=== PATIENT | female | born 1975 | race Caucasian/White ===

== ENCOUNTER 2018-01-29 10:52 | Emergency (ER) | payer SELFPAY ==
[2018-01-29 11:25] VITALS: BP 114/78
[2018-01-29] MEDS ORDERED: PREDNISONE 20 MG TABLET PO ONE (11:58)
[2018-01-29] MEDS ORDERED: FAMOTIDINE 20 MG TABLET PO ONE (11:58)
--- NOTE | 2018-01-29 12:01 | ER Document Report ---
ED Allergic Reaction - General Chief Complaint: Allergy Symptoms Stated Complaint: FACIAL SWELLING Time Seen by Provider: 01/29/18 11:35 Mode of Arrival: Ambulatory Information source: Patient Notes: 42-year-old female presented to ED for complaint of facial swelling and itching and sneezing itchy mouth and scratchy eyes that started yesterday after she had breakfast and her nails done. She states she has not eaten or drinking or done anything that is different. She states she took some Benadryl and Zyrtec with no relief. She states she does have a history of allergies anxiety depression bronchitis and sinus infections. She denies any fever since the symptoms started. He is alert and oriented respirations are regular and unlabored speaking in full sentences and walks with a even steady gait. - HPI Onset: Yesterday Onset/Duration: Persistent Quality of pain: No pain Severity: None Pain Level: Denies Identified cause: No Skin rash / itching: Facial Swelling: Face Similar symptoms previously: Yes Recently seen / treated by doctor: No - Related Data Allergies/Adverse Reactions: erythromycin base [From E-Mycin] Allergy (Verified 01/29/18 10:59) tramadol Allergy (Verified 01/29/18 10:59) Past Medical History - General Information source: Patient - Social History Smoking Status: Current Every Day Smoker Cigarette use (# per day): Yes - One half pack per day Chew tobacco use (# tins/day): No Smoking Education Provided: Yes - 4 minutes Frequency of alcohol use: None Drug Abuse: None Lives with: Family Family History: None, Reviewed & Not Pertinent Patient has suicidal ideation: No Patient has homicidal ideation: No - Past Medical History Cardiac Medical History: Reports: None Pulmonary Medical History: Reports: Hx Bronchitis EENT Medical History: Reports: None Neurological Medical History: Reports: None Endocrine Medical History: Reports: None Renal/ Medical History: Reports: None Malignancy Medical History: Reports: None GI Medical History: Reports: None Musculoskeletal Medical History: Reports None Skin Medical History: Reports None Psychiatric Medical History: Reports: Hx Anxiety, Hx Depression Traumatic Medical History: Reports: None Infectious Medical History: Reports: None Past Surgical History: Reports: Hx Cholecystectomy, Hx Tubal Ligation - Immunizations Hx Diphtheria, Pertussis, Tetanus Vaccination: Yes Review of Systems - Review of Systems Constitutional: No symptoms reported EENT: Other - Patient itching and swelling in the face. denies: Difficulty swallowing Cardiovascular: No symptoms reported Respiratory: No symptoms reported Gastrointestinal: No symptoms reported Genitourinary: No symptoms reported Female Genitourinary: No symptoms reported Musculoskeletal: No symptoms reported Skin: No symptoms reported Hematologic/Lymphatic: No symptoms reported Neurological/Psychological: No symptoms reported -: Yes All other systems reviewed and negative Physical Exam - Vital signs Vitals: Temp Pulse Resp BP Pulse Ox 98.7 F 72 16 114/78 97 01/29/18 11:24 01/29/18 11:24 01/29/18 11:24 01/29/18 11:24 01/29/18 11:24 Course - Re-evaluation Re-evalutation: 01/29/18 20:36 Patient was treated with prednisone and Pepcid in the emergency room and instructed to use Benadryl at home. Patient verbalized understanding and agreement with treatment plan. She also agreed to follow-up with her primary doctor. - Vital Signs Vital signs: Temp Pulse Resp BP Pulse Ox 98.7 F 72 16 114/78 97 01/29/18 11:24 01/29/18 11:24 01/29/18 11:24 01/29/18 11:24 01/29/18 11:24 Discharge - Discharge Clinical Impression: Allergic rhinitis Qualifiers: Allergic rhinitis trigger: unspecified Allergic rhinitis seasonality: unspecified Qualified Code(s): J30.9 - Allergic rhinitis, unspecified URI (upper respiratory infection) Qualifiers: URI type: unspecified URI Qualified Code(s): J06.9 - Acute upper respiratory infection, unspecified Condition: Stable Disposition: HOME, SELF-CARE Instructions: Family Physicians / Practices, Pediatricians Additional Instructions: ACUTE ALLERGIC REACTION: Your symptoms are due to an allergic reaction. Allergy can cause hives, swelling of the hands, feet, and face, hoarseness, and difficulty swallowing or breathing. It may be due to exposure to medication, animal dander, foods, infection, or insect bites. Medication is a common cause, even when prior use of this same medication caused no problems. Acute treatment may include adrenalin and antihistamines. Usually, the specific allergic agent can't be identified unless repeated episodes occur. Home treatment includes the following: (1) Stop any suspicious medications. This will be discussed with you. (2) Oral antihistamines for the next four to five days. Example, diphenhydramine (Benadryl) every four hours. (3) You may also use cimetidine (Tagamet), ranitidine (Zantac), or famotidine ( Pepcid) every four hours if diphenhydramine is not controlling itching and hives. (4) Avoid aspirin until the hives completely disappear. (5) Avoid hot baths or showers until the hives are completely gone. Call the doctor if faintness, difficulty swallowing, tightness in the chest , or wheezing occurs. STEROID MEDICATION: You have been given a medicine of the cortisone/steroid class. This medication is used to control inflammation or allergy. It is usually only given for a short period of time, until the acute process subsides. There are usually no side effects from short-term use of cortisone-like medications. Some persons feel an increased sense of well-being and are not sleepy at bedtime. Long-term use of cortisone medications is best avoided, unless required for a severe condition. If your condition does not remit, or relapses after the course of corticosteroid medication, you should consult your physician. ACID-SUPPRESSING MEDICATION: You have a prescription for medicine which reduces the stomach's secretion of acid. Examples include Zantac, Tagament, and Pepcid. These drugs are often used to allow healing of ulcers or esophagitis. They may be needed to prevent recurrence of ulcers in some patients, or to prevent damage from acid reflux in the esophagus. Take all medication as prescribed, even after the pain is gone. Regular antacids may be added as needed if you have symptoms while taking this medicine. These medications sometimes are prescribed for allergic reactions because they have anti-histaminic effects and relieve the rash and itching of the reaction. There are usually no side effects from this medication. But, in rare cases and particularly in the elderly, serious problems can occur. Contact your doctor if there is fever, rash, hallucinations, confusion, or unusual bruising. Contact your doctor at once if you develop lightheadedness, black or bloody stool, or bloody vomitus. ANTIHISTAMINES: An antihistamine has been given and/or prescribed to control your symptoms. Antihistamines are used for many reasons, including itching, watering eyes, runny nose, allergic swelling, hives, and insect stings. Antihistamines may cause drowsiness, especially with the first dose. Do not operate machinery or drive while under the effects of the medication. Other common side effects include dry mouth and eyes. In older persons, antihistamines can occasionally cause urinary retention, constipation, and trouble focusing the eyes. Do not combine the medication with alcohol, or with any other medication without talking to your doctor. UPPER RESPIRATORY ILLNESS: You have a viral infection of the respiratory passages -- a "cold." This common infection causes nasal congestion, drainage, and often sore throat and cough. It is highly contagious. The disease usually lasts about 10 to 14 days. There is no "cure" for the viral infection -- it must run its course. If there is a complication, such as bacterial infection in the nose, sinuses, middle ear, or bronchial tubes, antibiotics may be required. The antibiotics won't affect the virus. Drink plenty of fluids. A humidifier may help. An expectorant medication or decongestant may make you more comfortable. Use acetaminophen or ibuprofen for fever or aches. See the doctor if fever persists over two days, if there is any significant worsening of your symptoms, or if you simply fail to improve as expected. DECONGESTANT MEDICATION: A decongestant medicine has been suggested. Often this medicine is combined in the same tablet with an antihistamine or expectorant. This type of medicine is helpful in treating a bad cold or sinus condition, as well as in treatment of the nasal congestion of hay fever. It is not of much benefit for lung infections. Decongestant medicines are related to stimulants. They can cause an increase in blood pressure and heart rate. Persons with heart disease and high blood pressure should not take decongestants without discussing this with the physician. If you develop palpitations, chest pain, headache, or tremors, stop the medicine and consult your physician. COUGH-SUPPRESSANT & EXPECTORANT MEDICATION: You are to use a cough medication as needed for relief of symptoms. This medicine is a combination of an expectorant (to make the mucous thinner and more easily "coughed up") and a cough suppressant (to reduce the frequency of coughing). The cough-suppressant medicine is related to narcotics. You may experience mild nausea and sleepiness. Some patients who are very sensitive to narcotics may have stomach pain from this medicine. Taking the medicine with food reduces these side effects. Do not drive or work with machinery until you know how this medicine affects you. The expectorant should have no side effects. Iodine-containing expectorants (such as organidin) should not be taken by persons with active thyroid disease unless approved by your doctor. Call the doctor if you develop shortness of breath, hives, rash, itching, lightheadedness, or severe nausea and vomiting. USE OF ACETAMINOPHEN (Tylenol): Acetaminophen may be taken for pain relief or fever control. It's much safer than aspirin, offering a wider range of "safe" dosages. It is safe during . Some brand names are Tylenol, Panadol, Datril, Anacin 3, Tempra, and Liquiprin. Acetaminophen can be repeated every four hours. The following are maximum recommended dosages: >89 pounds or adults 650 mg to 900 mg Acetaminophen can be repeated every four hours. Maximum dose not to exceed 4000 mg a day. SMOKING: If you smoke, you should stop smoking. The tar and chemicals in cigarette smoke are harmful. Smoking has been shown to cause: emphysema chronic bronchitis lung cancer mouth and throat cancer stomach and pancreas cancer premature aging defects In addition, smoking increases ear and lung infections in children of smokers. FOLLOW-UP CARE: If you have been referred to a physician for follow-up care, call the physician s office for an appointment as you were instructed or within the next two days. If you experience worsening or a significant change in your symptoms, notify the physician immediately or return to the Emergency Department at any time for re-evaluation. Prescriptions: Famotidine [Pepcid 20 mg Tablet] 20 mg PO BID #12 tablet Prednisone [Deltasone 20 mg Tablet] 2 tab PO DAILY 3 Days tablet Forms: Smoking Cessation Education Referrals: HUMERA CHANDRA MD [NO LOCAL MD] - Follow up as needed
== END 2018-01-29 12:22 | disposition home or self-care (01) ==
LOC: ER 10:52
DX: J06.9 Acute upper respiratory infection, unspecified (principal); J30.9 Allergic rhinitis, unspecified; F17.210 Nicotine dependence, cigarettes, uncomplicated; Z98.51 Tubal ligation status; Z90.49 Acquired absence of other specified parts of digestive tract
CPT/HCPCS: 99406; 99283; J7512

== ENCOUNTER 2018-09-14 11:32 | Emergency (ER) | payer SELFPAY ==
[2018-09-14 11:39] VITALS: BP 137/86
--- NOTE | 2018-09-14 12:13 | ER Document Report ---
ED General - General Chief Complaint: Urinary Frequency Stated Complaint: LOWER BACK PAIN Time Seen by Provider: 09/14/18 11:52 Primary Care Provider: SKYE ACEVES MD [COMMUNITY BASED STAFF] - Follow up in 3-5 days (or your primary care. ) Notes: Patient is a 42-year-old female that presents to the emergency department for chief complaint of low back pain, dysuria and urinary frequency. Patient reports that she started having the symptoms a few days ago, and they are not going away so she decided come to the emergency department. She currently rates her pain as a 2 out of 10 describes it as uncomfortable. She denies having any fevers, chills, night sweats, flank pain, nausea, vomiting, diarrhea, chest pain or shortness of breath. No other complaints at this time. Past Medical History: Denies chronic medical conditions Past Surgical History: Cholecystectomy, tubal ligation Social History: Admits to smoking cigarettes, denies alcohol or drug use Family History: Reviewed and noncontributory for presenting illness Allergies: Reviewed, see documented allergy list. REVIEW OF SYSTEMS: Other than noted above, the 12 point review of systems was reviewed with the patient and were negative, all pertinent findings are included in the HPI. PHYSICAL EXAMINATION: Vital signs reviewed, nursing noted reviewed. GENERAL: Well-appearing, well-nourished and in no acute distress. HEAD: Atraumatic, normocephalic. EYES: Eyes appear normal, extraocular movements intact, sclera anicteric, conjunctiva are normal. ENT: nares patent, oropharynx clear without exudates. Moist mucous membranes. NECK: Normal range of motion, supple without lymphadenopathy LUNGS: Breath sounds clear to auscultation bilaterally and equal. No wheezes rales or rhonchi. HEART: Regular rate and rhythm without murmurs ABDOMEN: Soft, obese, nontender, normoactive bowel sounds. No rebound, guarding, or rigidity. No masses appreciated. EXTREMITIES: Nontender, good range of motion, no pitting or edema. NEUROLOGICAL: No focal neurological deficits. Moves all extremities spontaneously Motor and sensory grossly intact on exam. PSYCH: Normal mood, normal affect. SKIN: Warm, Dry, normal turgor, no rashes or lesions noted on exposed skin TRAVEL OUTSIDE OF THE [place] IN LAST 30 DAYS: No - Related Data Allergies/Adverse Reactions: erythromycin base [From [employer] Allergy (Verified 09/14/18 11:34) tramadol Allergy (Verified 09/14/18 11:34) Past Medical History - Social History Smoking Status: Current Every Day Smoker Chew tobacco use (# tins/day): No Frequency of alcohol use: Social Drug Abuse: None Family History: None, Reviewed & Not Pertinent Patient has suicidal ideation: No Patient has homicidal ideation: No Pulmonary Medical History: Reports: Hx Bronchitis Renal/ Medical History: Denies: Hx Peritoneal Dialysis Psychiatric Medical History: Reports: Hx Anxiety, Hx Depression Past Surgical History: Reports: Hx Cholecystectomy, Hx Tubal Ligation - Immunizations Hx Diphtheria, Pertussis, Tetanus Vaccination: Yes Physical Exam - Vital signs Vitals: Temp Pulse Resp BP Pulse Ox 98.6 F 90 18 137/86 H 98 09/14/18 11:38 09/14/18 11:38 09/14/18 11:38 09/14/18 11:38 09/14/18 11:38 Course - Re-evaluation Re-evalutation: Patient seen and examined, vital signs reviewed, patient appears well on exam, her complaints are very consistent with urinary tract infection, will send her urine for urinalysis and culture, patient will be written a prescription for Keflex twice daily for 5 days. Her UA was reviewed, had positive leukocyte esterase, bacteria, and white cells concerning for urinary tract infection, again will send for culture. Patient was also given Pyridium given that she had dysuria associated with this. She is advised to follow-up with a primary care physician. Laboratory 09/14/18 12:18 Urine Color STRAW Urine Appearance SLIGHTLY-CLOUDY Urine pH 6.0 Ur Specific [place] 1.005 Urine Protein NEGATIVE Urine Glucose (UA) NEGATIVE Urine Ketones NEGATIVE Urine Blood MODERATE H Urine Nitrite NEGATIVE Urine Bilirubin NEGATIVE Urine Urobilinogen NEGATIVE Ur Leukocyte Esterase SMALL H Urine WBC (Auto) 39 Urine RBC (Auto) 3 Urine Bacteria (Auto) 1+ Squamous Epi Cells Auto 3 Urine Mucus (Auto) RARE Urine Ascorbic Acid NEGATIVE - Vital Signs Vital signs: Temp Pulse Resp BP Pulse Ox 98.6 F 90 18 137/86 H 98 09/14/18 11:38 09/14/18 11:38 09/14/18 11:38 09/14/18 11:38 09/14/18 11:38 - Laboratory Laboratory results interpreted by me: 09/14/18 12:18 Urine Blood MODERATE H Ur Leukocyte Esterase SMALL H Discharge - Discharge Clinical Impression: UTI (urinary tract infection) Qualifiers: Urinary tract infection type: site unspecified Hematuria presence: with hematuria Qualified Code(s): N39.0 - Urinary tract infection, site not specified; R31.9 - Hematuria, unspecified Condition: Stable Disposition: HOME, SELF-CARE Instructions: Urinary Anesthetic Agent ([facility]), Urinary Tract Infection ([facility]) Additional Instructions: Please take all medications as prescribed, and complete the entire course of antibiotics, if you have any worsening symptoms, develop fevers or chills, do not hesitate to return to the emergency department sooner. Prescriptions: Cephalexin Monohydrate [Keflex 500 mg Capsule] 500 mg PO BID 5 Days #10 capsule Phenazopyridine HCl [Pyridium 200 mg Tablet] 200 mg PO TID #15 tablet Referrals: SKYE ACEVES MD [COMMUNITY BASED STAFF] - Follow up in 3-5 days (or your primary care. )
[2018-09-14 13:05] LABS: APPEARANCE,URINE SLIGHTLY-CLOUDY; BILIRUBIN,URINE NEGATIVE (NEGATIVE); COLOR,URINE STRAW; GLUCOSE, URINE NEGATIVE (NEGATIVE); KETONES,URINE NEGATIVE (NEGATIVE); LEUKOCYTE ESTERASE,URINE SMALL (NEGATIVE); NITRITE,URINE NEGATIVE (NEGATIVE); PROTEIN,URINE NEGATIVE (NEGATIVE); URINE SPECIFIC GRAVITY 1.005; UROBILINOGEN,URINE NEGATIVE mg/dL (<2.0)
== END 2018-09-14 12:24 | disposition home or self-care (01) ==
LOC: ER 11:32
DX: N39.0 Urinary tract infection, site not specified (principal); R31.9 Hematuria, unspecified; M54.5 Low back pain; R30.0 Dysuria; R35.0 Frequency of micturition; F17.210 Nicotine dependence, cigarettes, uncomplicated; Z88.1 Allergy status to other antibiotic agents; Z88.5 Allergy status to narcotic agent
CPT/HCPCS: 81001; 87086; 87088; 87186; 99283

== ENCOUNTER 2019-04-19 13:00 | Emergency (ER) | payer SELFPAY ==
[2019-04-19 13:04] VITALS: BP 128/88
[2019-04-19] MEDS ORDERED: IPRATROPIUM/ALBUTEROL 0.5-2.5 MG/3 ML AMPUL NEB ONE (13:52)
[2019-04-19] MEDS ORDERED: PSEUDOEPHEDRINE HCL 30 MG TABLET PO ONE (13:52)
[2019-04-19] MEDS ORDERED: IBUPROFEN 800 MG TABLET PO ONE (13:52)
[2019-04-19] MEDS ORDERED: PREDNISONE 20 MG TABLET PO ONE (13:52)
--- NOTE | 2019-04-19 13:53 | ER Document Report ---
HPI - HPI Patient complains to provider of: sore throat, congestion Time Seen by Provider: 04/19/19 13:42 Onset: Other - 5 days Onset/Duration: Persistent Quality of pain: Achy Pain Level: 3 Context: Patient presents complaining of sinus congestion sore throat cough for the past 5 days. Patient denies any fever. Patient does report recent sick contacts with similar symptoms. Associated Symptoms: Nonproductive cough, Rhinnorhea, Sinus pain/drainage, Sore throat. denies: Chills, Fever, Nausea, Vomiting Exacerbated by: Denies Relieved by: Denies Similar symptoms previously: No Recently seen / treated by doctor: No - ROS ROS below otherwise negative: Yes Systems Reviewed and Negative: Yes All other systems reviewed and negative - CONSTITUTIONAL Constitutional: DENIES: Fever, Chills - EENT EENT: REPORTS: Sore Throat, Nasal Drainage-Clear, Congestion - NEURO Neurology: DENIES: Headache - CARDIOVASCULAR Cardiovascular: DENIES: Chest pain - RESPIRATORY Respiratory: REPORTS: Coughing. DENIES: Trouble Breathing - GASTROINTESTINAL Gastrointestinal: DENIES: Nausea, Patient vomiting, Diarrhea - REPRODUCTIVE Reproductive: DENIES: : - DERM Skin Color: Normal Skin Problems: None Past Medical History - General Information source: Patient - Social History Smoking Status: Current Every Day Smoker Smoking Education Provided: Yes Frequency of alcohol use: None Drug Abuse: None Occupation: none Family History: None, Reviewed & Not Pertinent Pulmonary Medical History: Reports: Hx Asthma, Hx Bronchitis Renal/ Medical History: Denies: Hx Peritoneal Dialysis Psychiatric Medical History: Reports: Hx Anxiety, Hx Depression Past Surgical History: Reports: Hx Cholecystectomy, Hx Tubal Ligation - Immunizations Hx Diphtheria, Pertussis, Tetanus Vaccination: Yes Vertical Provider Document - CONSTITUTIONAL Agree With Documented VS: Yes Exam Limitations: No Limitations General Appearance: WD/WN, No Apparent Distress - INFECTION CONTROL TRAVEL OUTSIDE OF THE [place] IN LAST 30 DAYS: No - HEENT HEENT: Atraumatic, Normocephalic, Pharyngeal Tenderness, Pharyngeal Erythema. negative: Pharyngeal Exudate, Tympanic Membrane Red, Tympanic Membrane Bulging Notes: Clear rhinorrhea, swollen nasal mucosa. No facial swelling - NECK Neck: Normal Inspection, Supple. negative: Lymphadenopathy-Left, Lymphadenopathy-Right - RESPIRATORY Respiratory: No Respiratory Distress, Chest Non-Tender, Wheezing - CARDIOVASCULAR Cardiovascular: Regular Rate, Regular Rhythm, No Murmur - BACK Back: Normal Inspection - MUSCULOSKELETAL/EXTREMETIES Musculoskeletal/Extremeties: MAEW - NEURO Level of Consciousness: Awake, Alert, Appropriate Motor/Sensory: No Motor Deficit - DERM Integumentary: Warm, Dry, No Rash Course - Re-evaluation Re-evalutation: 04/19/19 14:24 Respirations unlabored, patient with decreased wheezing and increased air movement bilaterally. Nontoxic appearance. No concern for peritonsillar abscess or sinusitis at this time. - Vital Signs Vital signs: Temp Pulse Resp BP Pulse Ox 98.5 F 86 18 128/88 H 96 04/19/19 13:03 04/19/19 13:03 04/19/19 13:03 04/19/19 13:03 04/19/19 13:03 - Laboratory Laboratory results interpreted by me: 04/19/19 14:24 Labs- Entire Visit 04/19/19 13:50 Group A Strep Rapid NEGATIVE Discharge - Discharge Clinical Impression: Wheezing, Sinus congestion, Sore throat Upper respiratory infection Qualifiers: URI type: unspecified URI Qualified Code(s): J06.9 - Acute upper respiratory infection, unspecified Condition: Stable Disposition: HOME, SELF-CARE Instructions: Acetaminophen, Inhaled Bronchodilators ([facility]), Sore Throat ([facility]), Steroid Medication, Upper Respiratory Illness ([facility]) Additional Instructions: Return immediately for any new or worsening symptoms Followup with your primary care provider, call tomorrow to make a followup appointment Throat culture is pending, we will call if you need any different treatment Prescriptions: Prednisone [Deltasone 20 mg Tablet] 3 tab PO DAILY 4 Days tablet Guaifenesin/Pseudoephedrne HCl [Mucinex D ER 1,200-120 mg Tab] 1 each PO Q12 PRN #12 tab.er.12h PRN Reason: Inhaler,Assist Device,Accesory [Optichamber] 1 each MC Q4 PRN #1 each PRN Reason: Albuterol Sulfate [Proair Hfa Inhalation Aerosol 8.5 gm Mdi] 2 puff IH Q4 PRN #1 mdi PRN Reason: Forms: Smoking Cessation Education Referrals: [facility] [Provider Group] - Follow up as needed
== END 2019-04-19 14:33 | disposition home or self-care (01) ==
LOC: ER 13:00
DX: J06.9 Acute upper respiratory infection, unspecified (principal); J02.9 Acute pharyngitis, unspecified; R09.81 Nasal congestion; R05 Cough; J34.89 Other specified disorders of nose and nasal sinuses; J45.909 Unspecified asthma, uncomplicated; F17.200 Nicotine dependence, unspecified, uncomplicated
CPT/HCPCS: 94640; 99283; 87070; 87880; J7512; J7620

== ENCOUNTER 2020-02-09 21:20 | Emergency (ER) | payer SELFPAY ==
[2020-02-09] MEDS ORDERED: DIPH/PERTUSS(ACELL)/TETANUS VAC/PF 0.5 ML SYR (>=10YO) IM ONE (23:39)
--- NOTE | 2020-02-09 23:41 | ER Document Report ---
ED Medical Screen (RME) - General Chief Complaint: Toe Injury Stated Complaint: RIGHT BIG TOE PAIN Time Seen by Provider: 02/09/20 23:33 Mode of Arrival: Ambulatory Information source: Patient Notes: Patient was moving furniture and lifted furniture up causing her toenail to be lifted slightly. Patient states the area was bleeding initially. Injury occurred 4 days ago. Patient states she thought she may have had some purulent drainage from the end of her nail this evening. Patient complains of continued pain. No fever. I have greeted and performed a rapid initial assessment of this patient. A comprehensive ED assessment and evaluation of the patient, analysis of test results and completion of the medical decision making process will be conducted by additional ED providers. TRAVEL OUTSIDE OF THE [place] IN LAST 30 DAYS: No - Related Data Allergies/Adverse Reactions: erythromycin base [From E-Mycin] Allergy (Verified 02/09/20 23:33) tramadol Allergy (Verified 02/09/20 23:33) Past Medical History - Social History Frequency of alcohol use: None Drug Abuse: None Pulmonary Medical History: Reports: Hx Asthma, Hx Bronchitis Renal/ Medical History: Denies: Hx Peritoneal Dialysis Psychiatric Medical History: Reports: Hx Anxiety, Hx Depression Past Surgical History: Reports: Hx Cholecystectomy, Hx Tubal Ligation - Immunizations Hx Diphtheria, Pertussis, Tetanus Vaccination: Yes Physical Exam - Vital signs Vitals: Temp Pulse Resp BP Pulse Ox 98.2 F 82 20 115/74 100 02/09/20 22:11 02/09/20 22:11 02/09/20 22:11 02/09/20 22:11 02/09/20 22:11 - General Notes: Right great toe tenderness with partial nail avulsion Course - Vital Signs Vital signs: Temp Pulse Resp BP Pulse Ox 98.2 F 82 20 115/74 100 02/09/20 22:11 02/09/20 22:11 02/09/20 22:11 02/09/20 22:11 02/09/20 22:11
[2020-02-10 00:35] VITALS: BP 123/83
== END 2020-02-10 06:12 | disposition left against medical advice (07) ==
LOC: ER 21:20
DX: S91.201A Unspecified open wound of right great toe with damage to nail, initial encounter (principal); X58.XXXA Exposure to other specified factors, initial encounter; Z88.1 Allergy status to other antibiotic agents; Z88.6 Allergy status to analgesic agent; J45.909 Unspecified asthma, uncomplicated; Z53.20 Procedure and treatment not carried out because of patient's decision for unspecified reasons
CPT/HCPCS: 99281

== ENCOUNTER 2020-02-10 16:32 | Emergency (ER) | payer SELFPAY ==
[2020-02-10 16:38] VITALS: BP 134/86
--- NOTE | 2020-02-10 18:31 | RADIOLOGY REPORT (SQ) ---
EXAM DESCRIPTION: TOE RIGHT IMAGES COMPLETED DATE/TIME: 02/10/2020 5:09 pm REASON FOR STUDY: great toe injury COMPARISON: None. NUMBER OF VIEWS: Three views. TECHNIQUE: AP, lateral, and oblique images acquired of the right great toe LIMITATIONS: None. FINDINGS: MINERALIZATION: Normal. BONES: No acute fracture or dislocation. No worrisome bone lesions. JOINTS: No effusions. SOFT TISSUES: No soft tissue swelling. No foreign body. OTHER: No other significant finding. IMPRESSION: NEGATIVE STUDY OF THE RIGHT TOE. NO RADIOGRAPHIC EVIDENCE OF ACUTE INJURY. COMMENT: SITE OF TRAUMA/COMPLAINT MARKED/STAMP COMPLETED: NA TECHNICAL DOCUMENTATION: JOB ID: [id number] 2010 [employer]- All Rights Reserved Reading location - IP/workstation name: [email or web address]
--- NOTE | 2020-02-10 18:50 | ER Document Report ---
HPI - HPI Patient complains to provider of: Right great toe injury Time Seen by Provider: 02/10/20 17:38 Pain Level: 4 Context: 44-year-old female with no previous medical problems presents to the emergency room complaining of pain and bleeding to her right great toe. Patient states she was moving furniture on Friday caught her toe on the edge of the furniture causing her to rip the nail from the nailbed. Unsure if she hit the toe on anyt rikki. States that started bleeding at that time. Patient states she came in last night but left prior to finishing her treatment due to the long wait. States she is been taking Tylenol and ibuprofen with minimal relief. Describes it as a throbbing pain. No history of previous trauma or injury to her toe. Associated Symptoms: None Exacerbated by: Movement, Walking Relieved by: Remaining still Similar symptoms previously: No Recently seen / treated by doctor: No - ROS Systems Reviewed and Negative: Yes All other systems reviewed and negative - CONSTITUTIONAL Constitutional: DENIES: Fever, Chills - REPRODUCTIVE Reproductive: DENIES: : - MUSCULOSKELETAL Musculoskeletal: REPORTS: Extremity pain - DERM Skin Color: Normal Past Medical History - General Information source: Patient - Social History Smoking Status: Current Some Day Smoker Frequency of alcohol use: Occasional Drug Abuse: None Family History: None, Reviewed & Not Pertinent Pulmonary Medical History: Reports: Hx Asthma, Hx Bronchitis Renal/ Medical History: Denies: Hx Peritoneal Dialysis Psychiatric Medical History: Reports: Hx Anxiety, Hx Depression Past Surgical History: Reports: Hx Cholecystectomy, Hx Tubal Ligation - Immunizations Hx Diphtheria, Pertussis, Tetanus Vaccination: Yes Vertical Provider Document - CONSTITUTIONAL Agree With Documented VS: Yes Exam Limitations: No Limitations General Appearance: Mild Distress - INFECTION CONTROL TRAVEL OUTSIDE OF THE [place] IN LAST 30 DAYS: No - HEENT HEENT: Atraumatic, Normocephalic - NECK Neck: Normal Inspection, Supple - RESPIRATORY Respiratory: Breath Sounds Normal, No Respiratory Distress, Chest Non-Tender - CARDIOVASCULAR Cardiovascular: Regular Rate, Regular Rhythm, No Murmur - MUSCULOSKELETAL/EXTREMETIES Musculoskeletal/Extremeties: Tender - Numbness on palpation to the base of the right great toenail. The toenail is partially avulsed but is still intact. There is erythema and swelling around the lateral aspect of the right great toenail. There is no active bleeding noted. - NEURO Motor/Sensory: No Motor Deficit, No Sensory Deficit Notes: Positive right pedal pulse. Capillary refill less than 3 seconds. Neurovascularly intact. Ambulatory with slight limping noted to right.foot. - DERM Integumentary: Warm, Dry Notes: Erythema and swelling noted around the lateral aspect of the right great toenail. There is no active bleeding noted. Course - Re-evaluation Re-evalutation: 02/10/20 18:48 Reviewed x-ray results with patient. Counseled on diagnosis. Counseled patient that the nail will eventually come off as the new nail starts to grow. Co unseled to take antibiotics as prescribed. Rest, ice, elevate her foot. Dressing and wound care as discussed. And or Motrin as needed for pain. Outpatient follow-up with an orthopedist if not improving in 2 to 3 days. On- call physician was provided. Patient was given strict return to the emergency room guidelines. Return for any new or worsening symptoms. All questions were answered. Patient verbalized understanding and agrees with plan of care. 02/10/20 19:15 - Vital Signs Vital signs: Temp Pulse Resp BP Pulse Ox 97.8 F 99 16 134/86 H 100 02/10/20 16:36 02/10/20 16:36 02/10/20 16:36 02/10/20 16:36 02/10/20 16:36 - Diagnostic Test Radiology reviewed: Reports reviewed Discharge - Discharge Clinical Impression: Paronychia of great toe of right foot Nail avulsion, toe Qualifiers: Encounter type: initial encounter Qualified Code(s): S91.209A - Unspecified open wound of unspecified toe(s) with damage to nail, initial encounter Condition: Stable Disposition: HOME, SELF-CARE Instructions: Avulsed Nail ([facility]), Paronychia ([facility]) Additional Instructions: Rest and elevate foot as much as possible. Tylenol and or Motrin as needed for pain. Keep toe wrapped as much as possible. Take antibiotics as prescribed. Outpatient follow-up with orthopedics as discussed. Return to the emergency room for any new or worsening symptoms. Prescriptions: Cephalexin Monohydrate [Keflex 500 mg Capsule] 500 mg PO QID #40 capsule Forms: Return to Work Referrals: TITI LÓPEZ MD [ACTIVE STAFF] - Follow up as needed
== END 2020-02-10 18:57 | disposition home or self-care (01) ==
LOC: ER 16:32
DX: L03.031 Cellulitis of right toe (principal); S91.209A Unspecified open wound of unspecified toe(s) with damage to nail, initial encounter; W22.03XA Walked into furniture, initial encounter; F17.200 Nicotine dependence, unspecified, uncomplicated
CPT/HCPCS: 81025; 99284